=== PATIENT | male | born 1965 | race American Indian/Alaskan Native ===

== ENCOUNTER 2017-02-08 18:45 | Emergency (ER) | payer MEDICAID, MEDICARE ==
[2017-02-08] MEDS ORDERED: MORPHINE IV ONE ×2 (19:32→22:49)
--- NOTE | 2017-02-08 19:46 | Emergency Department Report ---
ED Back Pain/Injury HPI - General Chief Complaint: Extremity Injury, Lower Stated Complaint: LT LEG COLD /UNABLE TO WALK/PAIN IN BOTH LEGS Time Seen by Provider: 02/08/17 19:27 Source: patient, family Limitations: Physical Limitation - History of Present Illness Initial Comments: Pt is a 52 yr old male with h/o HTN, HLD, AFib who presents to the ED with subtherapeutic INR levels, R leg pain, and lower back pain. Pt reports the R leg pain is chronic, for the last 4 months, but more recently he has had an ache behind the R knee which is new for him. Along with the R leg pain, his R hip causes him pain and his lower back since last week. Pt was supposed to have an MRI done of his leg but it has been delayed due to insurance and the fact he has a non compatible defibrillator in his chest. Pt was notified by his Dr his INR levels were low and instructed to come to the hospital. Otherwise no fevers , chills, SALDIVAR, NVD, CP, SOB, abd pain, urinary or bowel incontinence, saddle anesthesias, falls, trauma, travel, or sick contacts. - Related Data Home Medications Medication Instructions Recorded Confirmed Last Taken Potassium Chloride [K-Dur] 10 meq PO DAILY 11/23/13 02/08/17 02/24/15 Lisinopril [Zestril] 5 mg PO QDAY 09/16/15 02/08/17 Unknown Carvedilol [Coreg] 6.25 mg PO BID 02/08/17 02/08/17 Unknown Ergocalciferol [Vitamin D2] 50,000 unit PO QWEEK 02/08/17 02/08/17 Unknown Furosemide [Lasix] 40 mg PO QDAY 02/08/17 02/08/17 Unknown Warfarin [Coumadin] 7.5 mg PO QDAY 02/08/17 02/08/17 Unknown traMADol [Ultram 50 MG tab] 50 mg PO BID PRN 02/08/17 02/08/17 Unknown Previous Rx's Medication Instructions Recorded Last Taken Type Simvastatin [Zocor TAB] 20 mg PO QHS #30 tablet 11/26/13 02/24/15 Rx HYDROcodone/APAP 5-325 [[place] 1 each PO Q6HR PRN #12 tablet 02/08/17 Unknown Rx 5/325] predniSONE [Deltasone] 50 mg PO QDAY #5 tab 02/08/17 Unknown Rx Allergies Allergy/AdvReac Type Severity Reaction Status Date / Time No Known Allergies Allergy Verified 08/22/13 13:23 ED Review of Systems ROS: Stated complaint: LT LEG COLD /UNABLE TO WALK/PAIN IN BOTH LEGS Other details as noted in HPI Comment: All other systems reviewed and negative ED Past Medical Hx - Past Medical History Previous Medical History?: Yes Hx Hypertension: No Hx CVA: Yes (2012) Hx Heart Attack/AMI: No Hx Congestive Heart Failure: Yes Hx Diabetes: No Hx Arthritis: No Hx Asthma: No Hx COPD: No - Surgical History Past Surgical History?: Yes Additional Surgical History: defib - Social History Smoking Status: Never Smoker Substance Use Type: Alcohol, Prescribed - Medications Home Medications: Home Medications Medication Instructions Recorded Confirmed Last Taken Type Potassium Chloride [K-Dur] 10 meq PO DAILY 11/23/13 02/08/17 02/24/15 History Simvastatin [Zocor TAB] 20 mg PO QHS #30 tablet 11/26/13 02/08/17 02/24/15 Rx Lisinopril [Zestril] 5 mg PO QDAY 09/16/15 02/08/17 Unknown History Carvedilol [Coreg] 6.25 mg PO BID 02/08/17 02/08/17 Unknown History Ergocalciferol [Vitamin D2] 50,000 unit PO QWEEK 02/08/17 02/08/17 Unknown History Furosemide [Lasix] 40 mg PO QDAY 02/08/17 02/08/17 Unknown History HYDROcodone/APAP 5-325 [[place] 1 each PO Q6HR PRN #12 tablet 02/08/17 Unknown Rx 5/325] Warfarin [Coumadin] 7.5 mg PO QDAY 02/08/17 02/08/17 Unknown History predniSONE [Deltasone] 50 mg PO QDAY #5 tab 02/08/17 Unknown Rx traMADol [Ultram 50 MG tab] 50 mg PO BID PRN 02/08/17 02/08/17 Unknown History ED Physical Exam - General Limitations: Physical Limitation General appearance: alert, in distress - Head Head exam: Present: atraumatic, normocephalic - Eye Eye exam: Present: normal appearance, PERRL, EOMI Pupils: Present: normal accommodation - ENT ENT exam: Present: mucous membranes moist - Neck Neck exam: Present: normal inspection - Respiratory Respiratory exam: Present: normal lung sounds bilaterally. Absent: respiratory distress - Cardiovascular Cardiovascular Exam: Present: regular rate, normal rhythm, normal heart sounds. Absent: irregular rhythm, systolic murmur, diastolic murmur, rubs, gallop - GI/Abdominal GI/Abdominal exam: Present: soft, normal bowel sounds. Absent: distended, tenderness, guarding, rebound, rigid - Rectal Rectal exam: Present: normal rectal tone - exam: Present: normal inspection External exam: Present: normal external exam - Extremities Exam Extremities exam: Present: normal inspection, full ROM, tenderness (R calf and R lower leg), normal capillary refill, other (NO change in temperature or signs of pallor of either extremity). Absent: pedal edema, joint swelling - Back Exam Back exam: Present: normal inspection, paraspinal tenderness, vertebral tenderness (lumbar) - Neurological Exam Neurological exam: Present: alert, oriented X3, CN II-XII intact, reflexes normal, other (No pallor or coolness noted to extremities). Absent: motor sensory deficit - Psychiatric Psychiatric exam: Present: normal affect, normal mood - Skin Skin exam: Present: warm, dry, intact, normal color. Absent: rash ED Course Vital Signs 02/08/17 02/08/17 02/08/17 18:57 19:17 19:20 Temperature 98 F Pulse Rate 50 L 82 91 H Respiratory 20 12 17 Rate Blood Pressure 153/112 O2 Sat by Pulse 97 97 Oximetry 02/08/17 02/08/17 02/08/17 19:30 19:40 19:50 Temperature Pulse Rate 73 76 87 Respiratory 19 16 22 Rate Blood Pressure 132/85 132/85 140/90 O2 Sat by Pulse 97 98 94 Oximetry 02/08/17 02/08/17 02/08/17 20:00 20:40 20:50 Temperature Pulse Rate 85 82 74 Respiratory 19 19 Rate Blood Pressure 140/90 140/90 140/90 O2 Sat by Pulse 96 97 95 Oximetry 02/08/17 02/08/17 21:00 21:10 Temperature Pulse Rate 83 72 Respiratory 17 20 Rate Blood Pressure 140/90 140/90 O2 Sat by Pulse 97 95 Oximetry ED Medical Decision Making - Lab Data Result diagrams: 02/08/17 19:42 02/08/17 19:42 - EKG Data -: EKG Interpreted by Me - EKG Data 02/08/17 20:03 Patient has demand pacemaker. Normal sinus rhythm with PVC, 77 bpm, QTC 400 ms , no ST changes, no STEMI - Radiology Data Radiology results: image reviewed R hip and pelvis: No acute fracture or dislocation as visualized by me - Medical Decision Making Patients labs were reviewed, patients INR is 3.2, its is NOT subtherapeutic Critical care attestation.: If time is entered above; I have spent that time in minutes in the direct care of this critically ill patient, excluding procedure time. ED Disposition Clinical Impression: Back pain as manifestation of blood transfusion reaction, Back pain, Right leg pain, Sciatica associated with disorder of lumbar spine Disposition: - TO HOME OR SELFCARE Is pt being admited?: No Condition: Stable Instructions: Lumbar Radiculopathy (ED), Back Pain (ED), Arthralgia (ED) Additional Instructions: PLEASE FOLLOW UP WITH AN ORTHOPEDIST AND YOUR PRIMARY CARE DOCTOR FOR YOUR HERNIATED DISC CAUSING YOUR LUMBAR RADICULOPATHY Prescriptions: HYDROcodone/APAP 5-325 [[place] 5/325] 1 each PO Q6HR PRN #12 tablet PRN Reason: Pain predniSONE [Deltasone] 50 mg PO QDAY #5 tab Referrals: PRIMARY CARE, [Referring] - 3-5 Days
[2017-02-08 19:53] LABS: Basophils % (Auto) 1.1 % (0.0-1.8); Eosinophils % (Auto) 1.5 % (0.0-4.3); Hematocrit 45.2 % (35.5-45.6); Hemoglobin 14.7 gm/dl (11.8-15.2); Mean Corpuscular HGB Conc 32 % (32-34); Mean Corpuscular Hemoglobin 28 pg (28-32); Mean Corpuscular Volume 87 fl (84-94); Platelet Count 305 K/mm3 (140-440); Red Blood Count 5.19 M/mm3 (3.65-5.03); Red Cell Distribution Width 13.4 % (13.2-15.2); White Blood Count 12.8 K/mm3 (4.5-11.0)
[2017-02-08 20:06] LABS: INR 3.2 (0.87-1.13)
[2017-02-08 20:07] LABS: Partial Thromboplastin Time 48.5 Sec. (24.2-36.6)
[2017-02-08 20:17] LABS: Alanine Aminotransferase 14 units/L (7-56); Albumin 3.9 g/dL (3.9-5); Albumin/Globulin Ratio 0.9 %; Alkaline Phosphatase 70 units/L (35-129); Anion Gap 18 mmol/L; Blood Urea Nitrogen 22 mg/dL (9-20); Calcium 8.9 mg/dL (8.4-10.2); Carbon Dioxide 21 mmol/L (22-30); Chloride 105.4 mmol/L (98-107); Glucose 120 mg/dL (75-100); Sodium 140 mmol/L (137-145); Total Protein 8.2 g/dL (6.3-8.2)
--- NOTE | 2017-02-08 21:21 | Cat Scan Report ---
FINAL REPORT EXAM: CT LUMBAR SPINE WO CON HISTORY: back pain, tender TECHNIQUE: Spiral high-resolution unenhanced 1.25 millimeter axial images were obtained through the lumbar spine. Sagittal and coronal plane are reconstructions were performed. PRIORS: CT a/P 09/17/2015 FINDINGS: Counting reference: Lumbosacral junction. For the purposes of this report, L4-L5 is considered the level of the iliac crest. Bone marrow/ Fracture: No evidence for acute or chronic fracture is seen. No evidence of a lytic or blastic process in the visualized spine. Facet joint degenerative changes at L4-L5 and L5-S1 are noted bilaterally. Alignment: Alignment is anatomic. Disc spaces: In the interim, there is been significant compression of the L4-L5 disc space with a significant right-sided and central bulge posteriorly into the spinal canal. Air in the disc space is also noted suggesting degeneration/vacuum disc phenomenon. Paraspinal soft tissues: The paraspinal soft tissues show no evidence for paravertebral hematoma or soft tissue mass. Sacrum and iliac wings: Visualized portions of the sacrum and iliac wings appear intact without fracture. The presacral soft tissues are normal in appearance. Stable sclerotic bone island in the right ilium is noted. IMPRESSION: 1. No evidence of acute fracture. 2. Significant interval compression and degeneration of L4-L5 disc level with central and right-sided bulge posteriorly into the spinal canal. MRI would be of further help.
[2017-02-08 22:48] VITALS: BP 127/91
--- NOTE | 2017-02-09 09:13 | XRay Report ---
RIGHT HIP: History: Hip pain. The bony architecture is intact without evidence of fracture or dislocation. No significant soft tissue abnormality is seen. IMPRESSION: Normal right hip.
== END 2017-02-08 22:52 | disposition home or self-care (01) ==
LOC: ED 18:45
DX: M54.40 Lumbago with sciatica, unspecified side (principal); M79.604 Pain in right leg; I63.9 Cerebral infarction, unspecified; I50.9 Heart failure, unspecified; Z79.01 Long term (current) use of anticoagulants
CPT/HCPCS: 36415; 72131; 73502; 80053; 85025; 85379; 85610; 85730; 93005; 93010; 96374; 96376; 99285; J2270